=== PATIENT | female | born 2000 | race Caucasian/White ===

== ENCOUNTER 2021-07-17 19:31 | Emergency (ER) | payer OTHER ==
[~2021-07-17] VITALS: Ht 160 cm; Wt 85.8 kg
[2021-07-17 21:28] LABS: HEMATOCRIT 32.1 % (31.2-41.9); MEAN CORPUSCULAR HEMOGLOBIN 28.2 uug (24.7-32.8); PLATELET COUNT (AUTO) 296 K/uL (179-408)
[2021-07-17 21:34] LABS: ALANINE AMINOTRANSFERASE 32 U/L (14-59); ALKALINE PHOSPHATASE 106 U/L (50-136); ASPARTATE AMINOTRANSFERASE 11 U/L (15-37); BILIRUBIN,DIRECT 0.1 mg/dL (0.0-0.2); BILIRUBIN,TOTAL 0.2 mg/dL (0.2-1.0); CARBON DIOXIDE 25 mmol/L (21-32); CHLORIDE 103 mmol/L (98-107); CREATININE 0.9 mg/dL (0.6-1.3); GLUCOSE 97 mg/dL (74-106); TOTAL PROTEIN, SERUM 7.7 g/dL (6.4-8.2); UREA NITROGEN, BLOOD 12 mg/dL (7-18)
[2021-07-17 21:38] LABS: ACETAMINOPHEN < 2.0 ug/mL (10-30)
[2021-07-17 21:43] LABS: ETHANOL < 3 MG/DL (0-0)
[2021-07-17 21:45] LABS: *AMPHETAMINE, URINE NEGATIVE (NEGATIVE); *CANNABINOID, URINE NEGATIVE (NEGATIVE); *COCCAINE, URINE NEGATIVE (NEGATIVE); *OPIATE, URINE NEGATIVE (NEGATIVE); *PHENCYCLIDINE SCREEN,URINE NEGATIVE (NEGATIVE)
[2021-07-17 21:48] LABS: *BILIRUBIN,URIN NEGATIVE (NEGATIVE); *BLOOD, URINE NEGATIVE (NEGATIVE); *CLARITY,URINE CLEAR (CLEAR); *COLOR,URINE YELLOW (YELLOW); *KETONES,URINE NEGATIVE (NEGATIVE); *UROBILINOGEN,URINE 0.2 E.U./dl (NORMAL); LEUKOCYTE ESTERASE ,URINE NEGATIVE (NEGATIVE); NITRITE, URINE NEGATIVE (NEGATIVE); UGLUCOSE NEGATIVE (NEGATIVE)
--- NOTE | 2021-07-17 22:38 | NUR ---
Medically cleared by DR Faustin. Called Joyce Sexton from [facility] who will eval patient.
--- NOTE | 2021-07-17 23:45 | NUR ---
Joyce from [facility] here to eval patient.
--- NOTE | 2021-07-18 01:40 | NUR ---
Per Joyce from [facility] patient does not meet criteria for 5150 hold.
--- NOTE | 2021-07-18 03:35 | NUR ---
Patient discharged to home in stable condition. Written and verbal after care instructions given. Patient verbalizes understanding of instructions. Stressed follow up or return to ER for worsening s/s. Patient taken home by friend.
[2021-07-18 03:36] VITALS: BP 131/69
== END 2021-07-18 03:37 ==
LOC: ER 19:38
DX: F19.10 Other psychoactive substance abuse, uncomplicated (principal); F10.21 Alcohol dependence, in remission; Z20.822 Contact with and (suspected) exposure to COVID-19
CPT/HCPCS: 36415; 85025; A4663; G0480